=== PATIENT | male | born 1950 | race Caucasian/White ===

== ENCOUNTER → 2017-09-02 | Outpatient (CLI) | payer MEDICARE ==
[~2017-09-02] MED LIST: CHOL200059 PO; CLOP75TA PO; GLUC-32 PO; L.AC1CAP6 PO; LORA-446 PO; M-171CAP PO; NITR0.4T28 SL; OMEG-13 PO; OMEP20TA62 PO; ROSU40TA PO; SILD50TA PO; TEST5POW3 PO; UBID300C PO; VITA1TAB19 PO; WARF2.5T73 PO; WARF5TAB7 PO
== END | disposition home or self-care (01) ==
LOC: CFH 14:21
PROVIDERS: ATTEND Nurse Practitioner Family
DX: I08.3 Combined rheumatic disorders of mitral, aortic and tricuspid valves (principal); E78.5 Hyperlipidemia, unspecified; I25.10 Atherosclerotic heart disease of native coronary artery without angina pectoris; I27.20 Pulmonary hypertension, unspecified; Z95.1 Presence of aortocoronary bypass graft; Z87.891 Personal history of nicotine dependence
CPT/HCPCS: 93306

== ENCOUNTER 2017-09-23 11:44 | Day surgery (SDC) | payer MEDICARE ==
[2017-09-21 10:37] VITALS: BP 142/107
[2017-09-21 11:18] LABS: HEMATOCRIT 47.4 % (39.2-51.8); HEMOGLOBIN 15.8 g/dL (13.7-18.0); WHITE BLOOD COUNT 8.1 x10^3/uL (3.4-10)
[2017-09-21 11:33] LABS: BLOOD UREA NITROGEN 15 mg/dL (7-18)
[2017-09-21 11:36] LABS: ASPARTATE AMINO TRANSFERASE 32 U/L (15-37)
[~2017-09-23] VITALS: Ht 188 cm; Wt 90.9 kg
[~2017-09-23 11:44] MED LIST changes: +ASPI-621 PO; +LUTEIN PO; +MULT-516 PO
[2017-09-23] MEDS ORDERED: DIPHENHYDRAMINE 50 MG/ML, 1ML ONE (13:28)
[2017-09-23] MEDS ORDERED: DIPHENHYDRAMINE 50 MG/ML, 1ML IVPush ONE (13:30)
[2017-09-23] MEDS ORDERED: TICAGRELOR 90 MG TABLET ONE (14:04)
[2017-09-23] MEDS ORDERED: FENTANYL PF 100 MCG/2ML ONE (14:04)
[2017-09-23] MEDS ORDERED: HEPARIN 1,000 UNITS/ML, 10ML ONE (14:04)
[2017-09-23] MEDS ORDERED: LIDOCAINE 2%, 20ML ONE (14:04)
[2017-09-23] MEDS ORDERED: VERAPAMIL 2.5 MG/ML, 2ML ONE (14:04)
[2017-09-23] MEDS ORDERED: BIVALIRUDIN 250 MG ONE (14:04)
[2017-09-23] MEDS ORDERED: MIDAZOLAM 1 MG/ML, 5ML ONE (14:04)
[2017-09-23] MEDS ORDERED: SODIUM CHLORIDE 0.9% 1,000 ML IV SCH (16:30)
== END 2017-09-23 17:45 ==
LOC: CACL 11:44
PROVIDERS: ATTEND Internal Medicine Cardiovascular Disease
DX: I25.10 Atherosclerotic heart disease of native coronary artery without angina pectoris (principal); G47.36 Sleep related hypoventilation in conditions classified elsewhere; I27.29 Other secondary pulmonary hypertension; Z79.82 Long term (current) use of aspirin
CPT/HCPCS: 36415; 71020; 80053; 85025; 85610; 93460; 99156; 99157; C1769; C1894; J1200; J1644; J2250; J3010; J3490; Q9967; J0583